=== PATIENT | female | born 1955 | race Caucasian/White ===

== ENCOUNTER → 2017-09-07 14:25 | Outpatient (CLI) | payer BC, SELFPAY ==
[2017-09-07 17:09] LABS: Basophils % 0.6 % (0.1-2.0); Eosinophils # 0.2 K/mm3 (0.0-0.4); Eosinophils % 4.1 % (0.1-12.0); Hematocrit 40.3 % (37.0-47.0); Hemoglobin 13.2 g/dL (12.2-16.2); Lymphocytes # 1.1 K/mm3 (0.7-4.5); Lymphocytes % 29.2 K/mm3 (10-50); Mean Corpuscular HGB Conc 32.6 g/dL (31.8-35.4); Mean Corpuscular Hemoglobin 30.7 pg (27.0-31.2); Mean Corpuscular Volume 94.1 fl (81-99); Mean Platelet Volume 8.1 fl (7.4-10.4); Monocytes # 0.3 K/mm3 (0.1-1.0); Monocytes % 8.5 % (1.7-9.3); Neutrophils # 2.2 K/mm3 (1.8-7.8); Neutrophils % 57.7 % (37.0-80.0); Platelet Count 231 K/mm3 (142-424); Red Blood Count 4.29 M/mm3 (4.20-5.40); Red Cell Distribution Width 11.9 % (11.5-17.5); White Blood Count 3.9 K/mm3 (4.8-10.8)
[2017-09-07 17:56] LABS: Alanine Aminotransferase 20 U/L (12-78); Albumin Level 3.9 gm/dL (3.4-5.0); Albumin/Globulin Ratio 1.3 (1.1-1.8); Alkaline Phosphatase 83 U/L (46-116); Anion Gap 11.3 mEq/L (5-15); Aspartate Amino Transferase 14 U/L (15-37); Bilirubin,Total 0.3 mg/dL (0.2-1.0); Blood Urea Nitrogen 23 mg/dL (7-18); Calcium 8.8 mg/dL (8.5-10.1); Carbon Dioxide 28 mmol/L (21.0-32.0); Chloride 105 mmol/L (98-107); Chol/HDL Ratio 3.1 (1-3.5); Cholesterol 170 mg/dL (140-200); Estimated Glomerular Filt Rate 102 ml/min (>60); GFR (African American) 123 ML/MIN (>60); Glucose 79 mg/dL (74-106); HDL Cholesterol 55 mg/dL (29-89); LDL Cholesterol 104 mg/dL (0-130); Potassium 4.3 mmoL/L (3.5-5.1); Sodium 140 mmol/L (136-145); T4 (Thyroxine) 3.4 ug/dl (4.7-13.3); Thyroid Stimulating Hormone 9.03 uIU/ml (0.358-3.740); Total Protein,Serum 6.9 gm/dL (6.4-8.2); Triglycerides 56 mg/dL (30-200); VLDL Cholesterol 11 mg/dL (0-40)
[2017-09-09 17:14] LABS: Vitamin B12 456 pg/mL (232-1245)
[2017-09-10 12:30] LABS: Vitamin D 25 Hydroxy 22.6 ng/mL (30.0-100.0)
== END ==
PROVIDERS: Visit Provider Emergency Medicine
DX: Z00.00 Encounter for general adult medical examination without abnormal findings (principal)
CPT/HCPCS: 80053; 80061; 82607; 82652; 84436; 84443; 85025

== ENCOUNTER → 2017-12-20 09:06 | Outpatient (REF) | payer BC, SELFPAY ==
[2017-12-20 14:09] LABS: Alanine Aminotransferase 21 U/L (12-78); Albumin Level 3.9 gm/dL (3.4-5.0); Albumin/Globulin Ratio 1.2 (1.1-1.8); Alkaline Phosphatase 95 U/L (46-116); Anion Gap 13.1 mEq/L (5-15); Aspartate Amino Transferase 14 U/L (15-37); Bilirubin,Total 0.5 mg/dL (0.2-1.0); Blood Urea Nitrogen 24 mg/dL (7-18); Carbon Dioxide 29 mmol/L (21.0-32.0); Chloride 104 mmol/L (98-107); Cholesterol 189 mg/dL (140-200); Creatinine,Serum 0.57 mg/dL (0.55-1.02); Estimated Glomerular Filt Rate 108 ml/min (>60); GFR (African American) 131 ML/MIN (>60); Globulin 3.2 gm/dl (1.3-3.2); Glucose 76 mg/dL (74-106); HDL Cholesterol 64 mg/dL (29-89); LDL Cholesterol 107 mg/dL (0-130); Potassium 5.1 mmoL/L (3.5-5.1); Sodium 141 mmol/L (136-145); Thyroid Stimulating Hormone 1.92 uIU/ml (0.358-3.740); Total Protein,Serum 7.1 gm/dL (6.4-8.2); Triglycerides 88 mg/dL (30-200); VLDL Cholesterol 18 mg/dL (0-40)
[2017-12-20 14:21] LABS: Basophils % 0.8 % (0.1-2.0); Eosinophils # 0.2 K/mm3 (0.0-0.4); Eosinophils % 3.7 % (0.1-12.0); Hematocrit 41.1 % (37.0-47.0); Hemoglobin 13.4 g/dL (12.2-16.2); Lymphocytes # 0.9 K/mm3 (0.7-4.5); Lymphocytes % 22.3 K/mm3 (10-50); Mean Corpuscular HGB Conc 32.7 g/dL (31.8-35.4); Mean Corpuscular Hemoglobin 31.2 pg (27.0-31.2); Mean Corpuscular Volume 95.5 fl (81-99); Mean Platelet Volume 8.5 fl (7.4-10.4); Monocytes # 0.3 K/mm3 (0.1-1.0); Monocytes % 6.2 % (1.7-9.3); Neutrophils # 2.6 K/mm3 (1.8-7.8); Neutrophils % 66.8 % (37.0-80.0); Platelet Count 271 K/mm3 (142-424); Red Cell Distribution Width 12.4 % (11.5-17.5); White Blood Count 3.9 K/mm3 (4.8-10.8)
[2017-12-21 09:07] LABS: Vitamin D 25 Hydroxy 44.8 ng/mL (30.0-100.0)
== END ==
LOC: LAB 09:06
PROVIDERS: PCP Nurse Practitioner Family; Visit Provider Nurse Practitioner Family
DX: E07.9 Disorder of thyroid, unspecified (principal); E55.9 Vitamin D deficiency, unspecified
CPT/HCPCS: 80053; 80061; 82652; 84439; 84443; 85025

== ENCOUNTER → 2017-12-31 13:04 | Outpatient (CLI) | payer BC, SELFPAY ==
--- NOTE | 2017-12-31 13:08 | US_ITS ---
ULTRASOUND THYROID HISTORY: Thyroid enlarged elevated TSH PROCEDURE: Multiple sagittal and transverse ultrasound images of the thyroid. COMPARISON, none FINDINGS: . ----- FINDINGS: Thyroid enlarged bilaterally, with left lobe slightly longer than right. Overall fairly homogeneous echotexture. Small bilateral nodules. RIGHT LOBE: 4.4 cm x 2 cm wide x 2 cm AP Nodule A: Small solid discrete 5.7 mm x 3.8 mm nodule towards inferior right lobe Nodule B: Vague 11 mm x 10 mm solid nodule more inferiorly at inferior right lobe Nodule C: LEFT LOBE: 4.9 cm length x 2 cm wide x 2 cm AP. Nodule A: 10 mm x 7 mm well-defined solid nodule posterior margin mid left lobe. Possible parathyroid. Nodule B: ISTHMUS:. Normal thickness less than 2 mm. -----IMPRESSION 1. Thyromegaly. 2. Small solid thyroid nodules bilaterally. At Right thyroid:. Largest is a vague nodule at inferior margin measuring 11 x 10 mm At Left lobe. 10 x 7 mm nodule posterior midportion
== END ==
PROVIDERS: PCP Emergency Medicine; Visit Provider Nurse Practitioner Family
DX: E07.9 Disorder of thyroid, unspecified (principal)
CPT/HCPCS: 76536

== ENCOUNTER → 2018-07-30 12:25 | Outpatient (CLI) | payer BC, SELFPAY ==
--- NOTE | 2018-07-30 13:00 | US_ITS ---
US thyroid HISTORY: Follow-up thyroid nodules ITS.REASON: Goiter ORDERING PHYSICIAN: Destin Worley MD PATIENT AGE: 63 years Comparison: 12/31/2017 FINDINGS: The right lobe is 4 x 1.5 x 1.7 cm. 6 x 5 mm mixed nodule right lobe mid aspect posteriorly unchanged. 5 x 3 mm slightly hypoechoic nodule lower pole unchanged The left lobe is 4.9 x 1.9 x 2 cm. An ill-defined 4 mm isoechoic nodular area is present in the left lobe mid aspect anteriorly not previously demonstrated. This may be due to heterogeneous echogenicity as opposed to a nodule. In the lower pole there is a 10 x 6 mm well-circumscribed isoechoic nodule unchanged. No other anomalies are evident. IMPRESSION: There are bilateral nodules apparent which are low level suspicion for malignancy. Most of the nodules are unchanged. There is a 4 mm nodule in the mid polar region on the left anteriorly which was not demonstrated previously. Continued follow-up recommended
[2018-07-30 15:14] LABS: Free T4 (Free Thyroxine) 0.99 ng/dl (0.76-1.46); Thyroid Stimulating Hormone 1.68 uIU/ml (0.358-3.740)
== END ==
PROVIDERS: PCP Emergency Medicine; Visit Provider Otolaryngology
DX: E04.1 Nontoxic single thyroid nodule (principal)
CPT/HCPCS: 36415; 76536; 84439; 84443

== ENCOUNTER → 2019-01-27 07:08 | Outpatient (CLI) | payer BC, SELFPAY ==
[2019-01-27 08:40] LABS: Free Thyroxine Index 3.8 ug/dL (5.93-13.13); T4 (Thyroxine) 9.8 ug/dl (4.7-13.3); Thyroid Stimulating Hormone 1.79 uIU/ml (0.358-3.740); Triiodothryronine (T3) Uptake 39 % (31-39)
[2019-01-28 11:28] LABS: Thyroid Peroxidase Antibodies 151 IU/mL (0-34)
[2019-01-30 21:14] LABS: Calcitonin <2.0 pg/mL (0.0-5.0); Thyroid Stimulating Immunoglob <0.10 IU/L (0.00-0.55)
== END ==
PROVIDERS: Visit Provider Otolaryngology
DX: E03.9 Hypothyroidism, unspecified (principal); E04.9 Nontoxic goiter, unspecified
CPT/HCPCS: 36415; 82308; 84436; 84443; 84445; 84479; 86376

== ENCOUNTER → 2019-02-04 11:48 | Outpatient (CLI) | payer BC, SELFPAY ==
--- NOTE | 2019-02-04 11:49 | US_ITS ---
PROCEDURE: US THYROID CLINICAL INDICATION: goiter Follow-up thyroid nodules COMPARISON: THY US thyroid from 07/30/2018 FINDINGS: Right lobe: 4.2 x 1.5 x 2 cm. There is heterogeneous echogenicity with a multi nodular configuration. There is an area of ill-defined decreased echogenicity in the posterior mid aspect of the thyroid gland 9 mm not significantly changed. There is a slightly hypoechoic nodule in the lower pole mm unchanged. Left lobe: Left lobe measures 3.7 x 1.5 x 1.8 cm. There is an 8 x 5 mm isoechoic nodule in the mid to lower pole on the unchanged. Isthmus: Unremarkable Additional findings: IMPRESSION: Stable bilateral thyroid nodules. Dictated by: Franko Johnson MD 02/05/2019 14:55 Electronically signed by Franko Johnson MD in [place] 02/05/2019 14:55
== END ==
PROVIDERS: PCP Emergency Medicine; Visit Provider Otolaryngology
DX: E03.9 Hypothyroidism, unspecified (principal); E04.9 Nontoxic goiter, unspecified
CPT/HCPCS: 76536

== ENCOUNTER → 2020-01-20 12:42 | Outpatient (POV) | payer OTHER, SELFPAY | PROVIDERS: Visit Provider Dermatology | DX: Z00.00 Encounter for general adult medical examination without abnormal findings (principal) ==

== ENCOUNTER → 2020-02-11 09:14 | Outpatient (CLI) | payer OTHER, SELFPAY ==
[2020-02-11 11:05] LABS: Thyroid Stimulating Hormone 1.58 uIU/mL (0.465-4.68)
--- NOTE | 2020-02-11 12:46 | US_ITS ---
PROCEDURE: US THYROID CLINICAL INDICATION: nodules COMPARISON: US US THYROID from 02/04/2019 FINDINGS: Right lobe: The right lobe is 4.1 x 1.5 x 1.5 cm. There is heterogeneous echogenicity. There is a stable nodule in the posterior aspect and mid aspect of the right lobe at 10 mm. In the lower pole there is a 6 x 4 mm mm slightly hypoechoic nodule unchanged Left lobe: The left lobe is 3.5 x 1.4 x 1.3 cm. There is irregular contour of the left lobe. A subtle for mm hypoechoic areas present in the mid polar region unchanged. In the lower pole there is a 7 mm hypoechoic nodule unchanged. Isthmus: Unremarkable Additional findings: IMPRESSION: No change multiple thyroid nodules Dictated by: Franko Johnson MD 02/11/2020 19:17 Franko Johnson MD in [facility] 02/11/2020 19:17
[2020-02-11 16:18] LABS: Free T4 (Free Thyroxine) 1.21 ng/dl (0.78-2.19)
[2020-02-12 13:39] LABS: Thyroid Peroxidase Antibodies 68 IU/mL (0-34)
[2020-02-13 09:43] LABS: Thyroid Stimulating Immunoglob <0.10 IU/L (0.00-0.55)
== END ==
PROVIDERS: PCP Emergency Medicine; Visit Provider Otolaryngology
DX: E04.9 Nontoxic goiter, unspecified (principal); E06.3 Autoimmune thyroiditis
CPT/HCPCS: 36415; 76536; 84439; 84443; 84445; 86376

== ENCOUNTER → 2020-08-13 14:22 | Outpatient (CLI) | payer OTHER, SELFPAY ==
--- NOTE | 2020-08-13 14:24 | US_ITS ---
PROCEDURE: US THYROID CLINICAL INDICATION: goiter Follow-up nodules COMPARISON: US US THYROID from 02/11/2020 FINDINGS: Right lobe: 4.3 x 1.9 x 2.5 cm. There is heterogeneous echogenicity. Questionable 6 mm slightly hypoechoic nodule posteriorly not significantly changed. An isoechoic nodules present in the lower pole at 5 mm unchanged Left lobe: 3.9 x 1.8 x 1.9 cm. Stable 5 mm isoechoic nodule upper pole. 8 x 5 mm isoechoic nodule with peripheral rim of decreased echogenicity in the lower pole not significantly changed. Isthmus: Unremarkable Additional findings: Both lobes have somewhat heterogeneous echogenicity with a nodular contour IMPRESSION: No change small bilateral thyroid nodules Dictated by: Franko Johnson MD 08/13/2020 22:20 Franko Johnson MD in [place] 08/13/2020 22:20
== END ==
PROVIDERS: Visit Provider Otolaryngology
DX: E04.9 Nontoxic goiter, unspecified (principal); E06.3 Autoimmune thyroiditis
CPT/HCPCS: 76536

== ENCOUNTER 2023-01-13 06:34 | Emergency (ER) | payer MEDICARE, SELFPAY ==
[2023-01-13 06:35] VITALS: BP 132/75; PULSE 54; RESP 13; TEMP 36.4; O2SAT 100; BMI 23.8
--- NOTE | 2023-01-13 06:35 | PC.NURSE ---
provided aidet to patient. pt verbalizes understanding. speech is clear. denies any recent ENT symptoms. denies any recent headaches.
--- NOTE | 2023-01-13 06:42 | ECG_ITS ---
APPROVED REPORT Exam: Resting ECG HR:56 bpm ECG Measurements Heart Rate 56 AXES IA 112 P 9 QRSd 94 QRS 5 QT 444 T 25 QTc 437 Conclusion SINUS BRADYCARDIA WITH SHORT IA INTERVAL INCOMPLETE RIGHT BUNDLE BRANCH BLOCK [90+ ms QRS DURATION, TERMINAL R IN V1/V2, 40+ ms S IN I/aVL/V4/V5/V6] MODERATE ST DEPRESSION [0.05+ mV ST DEPRESSION] ABNORMAL ECG UNCONFIRMED REPORT Electronically signed by : Vic Gillis MD 01/14/2023 08:40:22
--- NOTE | 2023-01-13 06:48 | PC.NURSE ---
blood sent to lab
[2023-01-13 07:00] VITALS: BP 128/73; PULSE 55; RESP 13; O2SAT 99
[2023-01-13 07:02] LABS: Alanine Aminotransferase 18 U/L (12-78); Albumin Level 4.4 g/dl (3.5-5.0); Albumin/Globulin Ratio 1.5 (1.1-1.8); Alkaline Phosphatase 89 U/L (38-126); Anion Gap 11.7 mEq/L (5-15); Aspartate Amino Transferase 26 U/L (14-36); Bilirubin,Total 0.5 mg/dl (0.2-1.3); Blood Urea Nitrogen 19 mg/dl (7-17); Calcium 9.3 mg/dl (8.4-10.2); Carbon Dioxide 28 mmol/L (22.0-30.0); Chloride 104 mmol/L (98-107); Creatinine Clearance Estimated 52 mL/min (50-200); Estimated Glomerular Filt Rate 84 ml/min (>60); GFR (African American) 101 ML/MIN (>60); Globulin 2.9 g/dL (1.3-3.2); Glucose 132 mg/dl (74-100); Lipase 94 U/L (23-300); Potassium 3.7 mmoL/L (3.5-5.1); Sodium 140 mmol/L (136-145); Total Protein,Serum 7.3 g/dl (6.3-8.2)
[2023-01-13 07:07] LABS: Basophils % 0.3 % (0.1-2.0); Eosinophils # 0.1 K/mm3 (0.0-0.4); Eosinophils % 1.8 % (0.1-12.0); Hematocrit 40.4 % (37.0-47.0); Lymphocytes # 1.2 K/mm3 (0.7-4.5); Lymphocytes % 24.8 % (10-50); Mean Corpuscular HGB Conc 34.8 g/dL (31.8-35.4); Mean Corpuscular Hemoglobin 32.6 pg (27.0-31.2); Mean Corpuscular Volume 93.8 fl (81-99); Mean Platelet Volume 7.8 fl (7.4-10.4); Monocytes # 0.2 K/mm3 (0.1-1.0); Monocytes % 4.8 % (1.7-9.3); Neutrophils # 3.4 K/mm3 (1.8-7.8); Neutrophils % 68.3 % (37.0-80.0); Platelet Count 212 K/mm3 (142-424); Red Cell Distribution Width 12.3 % (11.5-17.5)
[2023-01-13 07:15] LABS: Troponin I < 0.01 ng/ml (0.00-0.034)
--- NOTE | 2023-01-13 07:16 | HMH.EDGENADL ---
Discharge Plan Disposition Patient Disposition: Home, Self-Care Prescriptions Prescriptions: New meclizine 25 mg tablet 25 mg PO QID PRN (Reason: dizziness) Qty: 20 1RF Referrals Follow up/Referrals: Hipolito Rodriguez MD [Primary Care Provider] - See instructions Syd Abrams, PT [Physical Therapist] - See instructions (needs vestibular PT) Activity Restrictions/Add. Instructions Additional Instructions/Restrictions: Call your family doctor to establish care for this visit to the emergency department and schedule follow-up within 48 hours to ensure improvement. If you have any worsening of your condition or any other concerning signs or symptoms, return to the emergency department or your primary care doctor for further evaluation. Talk to your family doctor about vertigo medications as well as physical therapy about vestibular physical therapy. Meclizine (Antivert) has been sent to the pharmacy, take this (1/2-1 full tablet) every 6 hours as needed for dizziness. Maneuvers which have been provided (more specifically, Vance maneuver) can help with acute symptoms. If you have symptoms that do not go away, return to the emergency department. Clinical Impressions Clinical Impression: Benign paroxysmal positional vertigo Discharge ED Provider: Hunter Ochoa General Adult HPI General Chief complaint: Dizziness Stated complaint: dizziness, vomiting Time Seen by Provider: 01/13/23 06:55 Mode of Arrival: Ambulatory Source of Information: Patient Limitations: No Limitations Description of Symptoms (Recalled from ER Triage Doc. by RN): Patient went to bed normal around 1999, awoke at 0000 with N/V and dizziness. No other complaints at this time. History of Present Illness HPI narrative: 68-year-old female history of hypothyroidism not currently on maintenance therapy presenting with dizziness. Patient states that she woke up in the middle of the night to go to the restroom, when she stood up, she started feeling dizzy and as if the room was spinning. Nauseated, did not vomit. Was able to go the bathroom, but was staggering [id number] on the way to her bed. Was able to fall back to sleep, but woke up few hours later just before arrival. When turning over in bed and trying to get up, she became dizzy again. Associated diaphoresis. Denies chest pain, shortness of breath, lower extremity swelling, vision changes, speech difficulties, confusion, or any other concerns. Never had anything like this, no recent illnesses. Related Data Previous Rx's Medication Instructions Recorded meclizine 25 mg tablet 25 mg PO QID PRN dizziness #20 tabs 01/13/23 Allergies Allergy/AdvReac Type Severity Reaction Status Date / Time No Known Allergies Allergy Verified 08/24/20 12:32 [facility] Disclaimer: The information contained in this section may have been updated after the patient was seen, as this information can be updated by other users. Medical History (Updated 01/13/23 @ 08:44 by Hunter Ochoa MD) Cindy's thyroiditis Hypothyroidism (~09/09/17) Social History Smoking Status: Never smoker alcohol intake: never substance use type: denies use current occupational status: unemployed Travel in the last 8 weeks: None ROS Obtained: Yes All systems reviewed & no additional complaints except as documented Physical Exam General General appearance: alert and in no apparent distress Head Head exam: atraumatic and normocephalic Eye Eye exam: Present normal appearance, PERRL and EOMI ENT ENT exam: Present mucous membranes moist Neck Neck exam: Present normal inspection, full ROM and trachea midline Respiratory Respiratory exam: Present normal lung sounds bilaterally; Absent respiratory distress, wheezes, stridor, accessory muscle use or prolonged expiratory phase Cardiovascular Cardiovascular exam: Present regular rate and normal rhythm Abdominal Exam Abdominal exam: Present soft; Absent distent
[2023-01-13 07:30] VITALS: BP 125/65; PULSE 50; RESP 14; O2SAT 98
[2023-01-13 07:40] LABS: T4 (Thyroxine) 7.4 ug/dl (5.53-11.0)
[2023-01-13 07:53] LABS: Thyroid Stimulating Hormone 1.65 uIU/mL (0.465-4.68)
[2023-01-13 08:00] VITALS: BP 128/73; PULSE 58; RESP 12; O2SAT 100
[2023-01-13 08:30] VITALS: BP 127/69; PULSE 52; RESP 12; O2SAT 99
[2023-01-13 08:54] VITALS: BP 127/69; PULSE 57; RESP 16; TEMP 36.7
== END 2023-01-13 08:55 | disposition home or self-care (01) ==
PROVIDERS: Emergency Medicine; Emergency Provider Emergency Medicine; PCP Emergency Medicine
DX: H81.10 Benign paroxysmal vertigo, unspecified ear (principal); R00.1 Bradycardia, unspecified; R11.2 Nausea with vomiting, unspecified; E03.9 Hypothyroidism, unspecified; E06.3 Autoimmune thyroiditis
CPT/HCPCS: 80053; 83690; 83735; 84436; 84443; 84484; 85025; 93005; 96361; 96374; 99284; J2405